=== PATIENT | female | born 1935 | race Caucasian/White ===

== ENCOUNTER 2017-11-22 10:40 | Outpatient (RCR) | payer MEDICARE, SELFPAY ==
[2017-11-08 08:21] LABS: Prothrombin Time Fingerstick 39.7 SEC (11.9-14.4)
[2017-11-22 12:28] LABS: International Normalized Ratio 2.5; Prothrombin Time (Protime)PT. 25.9 SECONDS (11.7-14.9)
[2017-11-22 12:33] LABS: T4 Free Direct 1.14 ng/dL (0.76-1.46); Thyroid Stim Hormone (TSH) 5.98 uIU/mL (0.358-3.74)
[2017-11-22 12:37] LABS: AST(SGOT) 22 U/L (15-37); Alanine Aminotransfer ALT/SGPT 36 U/L (12-78); Albumin, Serum 3.7 g/dL (3.4-5.0); Alkaline Phosphatase 78 U/L (45-117); Bilirubin, Direct 0.11 mg/dL (0.00-0.30); Globulin 3.7 g/dL (2.2-4.2); Protein, Total 7.4 g/dL (6.4-8.2)
== END 2017-11-22 11:00 | disposition home or self-care (01) ==
LOC: MTLAB 10:40
PROVIDERS: Family Provider Family Medicine; PCP Family Medicine; Visit Provider Internal Medicine Cardiovascular Disease
DX: I48.2 Chronic atrial fibrillation (principal)
CPT/HCPCS: 36415; 36416; 80076; 84439; 84443; 85610

== ENCOUNTER 2017-12-05 08:01 | Outpatient (RCR) | payer MEDICARE, SELFPAY ==
[2017-10-29 09:52] VITALS: BP 128/72; BMI 41.1
[2017-12-05 08:16] LABS: Prothrombin Time Fingerstick 32.5 SEC (11.9-14.4)
== END 2017-12-05 15:00 | disposition home or self-care (01) ==
LOC: MTLAB 08:01
PROVIDERS: Family Provider Family Medicine; PCP Family Medicine; Visit Provider Internal Medicine Cardiovascular Disease
DX: I48.0 Paroxysmal atrial fibrillation (principal); Z79.01 Long term (current) use of anticoagulants
CPT/HCPCS: 36416; 85610

== ENCOUNTER → 2018-01-03 09:55 | Outpatient (CLI) | payer MEDICARE, SELFPAY ==
[2018-01-03 12:48] LABS: T4 Free Direct 1.09 ng/dL (0.76-1.46); Thyroid Stim Hormone (TSH) 4.19 uIU/mL (0.358-3.74)
== END ==
PROVIDERS: Family Provider Family Medicine; PCP Family Medicine
DX: I48.1 Persistent atrial fibrillation (principal)
CPT/HCPCS: 36415; 84439; 84443

== ENCOUNTER → 2018-01-16 10:15 | Outpatient (CLI) | payer MEDICARE, SELFPAY ==
--- NOTE | 2018-01-16 10:23 | RAD_ITS ---
STUDY: X-RAY CHEST REASON FOR EXAM: Female, 82 years old. COPD TECHNIQUE: Frontal and lateral view COMPARISON: June 19, 2017 FINDINGS: Stable left-sided pacemaker. The lungs are clear and expanded. There is no demonstrated pleural abnormality. Stable cardiomegaly. Normal mediastinum and tito. Slightly prominent central pulmonary arteries. Mildly calcified aortic arch and descending thoracic aorta. Mild degenerative changes of the thoracic spine. Normal visualized ribs, clavicles, and shoulders. There is no demonstrated abnormality of the visualized soft tissue structures of the upper abdomen. RAD/Chest PA and Lateral IMPRESSION: Cardiomegaly with central pulmonary vascular prominence. Electronically Signed: Jose David Davis DO at 21:01 EDT Tel [phone], Service support ,
== END ==
PROVIDERS: Family Provider Family Medicine; PCP Family Medicine; Visit Provider Family Medicine
DX: J44.1 Chronic obstructive pulmonary disease with (acute) exacerbation (principal); I51.7 Cardiomegaly
CPT/HCPCS: 71046

== ENCOUNTER → 2018-01-23 10:47 | Outpatient (CLI) | payer MEDICARE, SELFPAY ==
--- NOTE | 2018-01-23 10:58 | RAD_ITS ---
STUDY: X-RAY - ABDOMEN/PELVIS REASON FOR EXAM: Female, 82 years old. Constipation. TECHNIQUE: AP supine and upright views of the abdomen and pelvis. COMPARISON: None. FINDINGS: Normal visualized lung bases. Pacer leads overlie the heart. Air and feces is seen throughout the colon without colonic enlargement there is no small bowel dilatation. There is no demonstrated free abdominal air. The visualized liver, spleen and kidneys are grossly normal in size and morphology. Normal soft tissue structures. There are diffuse degenerative changes of the visualized lumbar spine. RAD/Abd Inc Decub and/or Erect IMPRESSION: Increased colonic feces consistent with constipation. Electronically Signed: Brett Smith DO at 16:56 EDT Tel [phone], Service support ,
== END ==
LOC: MTLAB 10:51 → MTRAD 10:54
PROVIDERS: Family Provider Family Medicine; PCP Family Medicine; Visit Provider Family Medicine
DX: K59.00 Constipation, unspecified (principal)
CPT/HCPCS: 74019

== ENCOUNTER 2018-01-24 09:32 | Outpatient (RCR) | payer MEDICARE, SELFPAY ==
[2017-12-27 12:21] LABS: Prothrombin Time Fingerstick 26.4 SEC (11.9-14.4)
[2018-01-24 12:05] LABS: International Normalized Ratio 2.4; Prothrombin Time (Protime)PT. 26.6 SECONDS (11.7-14.9)
[2018-01-24 12:34] LABS: Vitamin D,25 Hydroxy 24.9 ng/mL (29.95-100.01)
[2018-01-24 12:37] LABS: Anion Gap 8 (5-15); BUN 20 mg/dL (7-18); BUN/Creat Ratio 18.5 RATIO (10-20); Calcium,Total 8.5 mg/dL (8.5-10.1); Chloride 98 mmol/L (98-107); Creatinine, Serum 1.08 mg/dL (0.55-1.02); EST Glomerular Filtration Rate 52 mL/min (>60); Est Glom Filt Rate - Afr Amer 63 mL/min (>60); Glucose 124 mg/dL (74-106); Potassium 3.6 mmol/L (3.5-5.1); Sodium Level 137 mmol/L (136-145); Thyroid Stim Hormone (TSH) 1.13 uIU/mL (0.358-3.74)
== END 2018-01-24 10:00 | disposition home or self-care (01) ==
LOC: MTLAB 09:32
PROVIDERS: Family Provider Family Medicine; PCP Family Medicine; Visit Provider Internal Medicine Cardiovascular Disease
DX: E03.9 Hypothyroidism, unspecified (principal); I48.0 Paroxysmal atrial fibrillation; Z79.01 Long term (current) use of anticoagulants; E55.9 Vitamin D deficiency, unspecified
CPT/HCPCS: 36416; 80048; 82306; 84443; 85610

== ENCOUNTER → 2018-02-06 10:41 | Outpatient (CLI) | payer MEDICARE, SELFPAY ==
--- NOTE | 2018-02-06 10:46 | RAD_ITS ---
STUDY: X-RAY CHEST REASON FOR EXAM: Female, 82 years old. Mid anterior chest pain. TECHNIQUE: PA and lateral views of the chest. COMPARISON: Comparison is made with prior study dated January 16, 2018. FINDINGS: Hyperinflation. Stable mild degree of increased markings at the lung bases suggestive of bibasilar scarring. There is no demonstrated pleural abnormality. There is mild cardiac enlargement. Left-sided dual-chamber pacemaker is seen. Normal mediastinum and tito. Normal visualized pulmonary arteries. There is atherosclerotic calcification of the aortic arch with tortuosity. There are diffuse degenerative changes of the visualized thoracic spine. The mineralization of the thoracic vertebrae. Healed fracture of the proximal left humerus. There is no demonstrated abnormality of the visualized soft tissue structures of the upper abdomen. RAD/Chest PA and Lateral IMPRESSION: Hyperinflation. Stable mild degree of increased markings at the lung bases suggestive of scarring. Electronically Signed: Darvin Marroquin MD at 11:21 EDT Tel [phone], Service support ,
--- NOTE | 2018-02-06 10:46 | RAD_ITS ---
STUDY: X-RAY - ABDOMEN/PELVIS REASON FOR EXAM: Female, 82 years old. Constipation. TECHNIQUE: AP supine and upright views of the abdomen and pelvis. COMPARISON: None. FINDINGS: Normal visualized lung bases. There is an abundance of fecal material throughout the colon. There is no demonstrated free abdominal air. The visualized liver, spleen and kidneys are grossly normal in size and morphology. Normal soft tissue structures. There are diffuse degenerative changes of the visualized lumbar spine. Osteoarthritis of both hip joints. RAD/Abd Inc Decub and/or Erect IMPRESSION: Large amount of fecal material is seen in the colon. Electronically Signed: Darvin Marroquin MD at 11:23 EDT Tel [phone], Service support ,
[2018-02-06 12:13] LABS: Absolute Lymphocyte Count 1.02 X10^3/ul (0.83-4.51); Absolute Neutrophil Count 6.3 X10^3/uL (2.0-7.7); Basophil# 0.05 X10^3/uL; Basophil% 0.6 % (0-1); Eosinophil# 0.11 X10^3/uL; Eosinophils% 1.4 % (0-5); Lymphocyte # 1.02 X10^3/ul (4.0); Lymphocyte % 12.7 % (19-41); Mean Corp Hgb Conc 31.1 g/gl (32-36); Mean Corpuscular Hgb 30.3 pg (27.0-32.0); Mean Corpuscular Volume 97.4 fL (81-99); Monocyte# 0.59 X10^3/uL; Monocyte% 7.3 % (0-10); Neutrophil # 6.25 X10^3/uL (2.7-7.7); Neutrophil % 77.8 % (47-70); Platelet Count 200 K/mm3 (150-450); RBC Distribution Width CV 15.1 % (11.6-14.6); RBC Distribution Width SD 53.4 fl (35.1-43.9); Red Blood Count 4.62 M/mm3 (4.2-5.4)
[2018-02-06 12:18] LABS: POSITIVE COUNT NO; POSITIVE DIFFERENTIAL NO; POSITIVE MORPHOLOGY NO
[2018-02-06 12:30] LABS: International Normalized Ratio 2.5; Prothrombin Time (Protime)PT. 27.2 SECONDS (11.7-14.9)
[2018-02-06 12:44] LABS: Anion Gap 8 (5-15); BUN 16 mg/dL (7-18); BUN/Creat Ratio 15.5 RATIO (10-20); Calcium,Total 8.7 mg/dL (8.5-10.1); Chloride 99 mmol/L (98-107); Creatinine, Serum 1.03 mg/dL (0.55-1.02); EST Glomerular Filtration Rate 55 mL/min (>60); Est Glom Filt Rate - Afr Amer 66 mL/min (>60); Glucose 129 mg/dL (74-106); Potassium 3.7 mmol/L (3.5-5.1); Sodium Level 141 mmol/L (136-145)
== END ==
PROVIDERS: Internal Medicine Cardiovascular Disease; Family Provider Family Medicine; PCP Family Medicine; Visit Provider Nurse Practitioner Adult Health
DX: I48.0 Paroxysmal atrial fibrillation (principal); Z79.01 Long term (current) use of anticoagulants; K59.00 Constipation, unspecified; R53.83 Other fatigue; R05 Cough
CPT/HCPCS: 36415; 71046; 74019; 80048; 85025; 85610

== ENCOUNTER 2018-02-07 07:35 | Emergency (ER) | payer MEDICARE, SELFPAY ==
[2018-02-07 07:36] VITALS: BP 157/100; PULSE 77; RESP 20; TEMP 36.6; O2SAT 92; BMI 41.1
--- NOTE | 2018-02-07 07:59 | RAD_ITS ---
STUDY: X-RAY CHEST REASON FOR EXAM: Female, 82 years old. Epigastric pain. Diarrhea. TECHNIQUE: Single AP portable view of the chest. COMPARISON: Comparison is made with prior study dated February 06, 2018. FINDINGS: EKG electrodes are seen. Stable mild degree of increased markings at the lung bases suggestive of scarring. There is no demonstrated pleural abnormality. There is borderline cardiomegaly. A left-sided dual-chamber pacemaker is seen. Normal mediastinum and tito. Normal visualized pulmonary arteries. There is atherosclerotic tortuosity of the aortic arch and descending thoracic aorta. There are diffuse degenerative changes of the visualized thoracic spine. Deformity of the proximal left humerus due to a healed fracture of the humeral neck. There is no demonstrated abnormality of the visualized soft tissue structures of the upper abdomen. RAD/Chest 1 View (Portable) IMPRESSION: Stable examination with findings suggestive of bibasilar scarring. Electronically Signed: Darvin Marroquin MD at 8:27 EDT Tel [phone], Service support ,
--- NOTE | 2018-02-07 07:59 | EKG12_ITS ---
Test Reason : CONSTIPATON Blood Pressure : / mmHG Vent. Rate : 071 BPM Atrial Rate : 115 BPM P-R Int : 000 ms QRS Dur : 092 ms QT Int : 352 ms P-R-T Axes : 000 005 -69 degrees QTc Int : 382 ms Atrial fibrillation with occasional ventricular-paced complexes Nonspecific ST and T wave abnormality Abnormal ECG Confirmed by SUSHIL RENEE, CHRISTIAN ([id number]), story editor KRISTIN PONCE ([id number]) on 02/11/2018 1:50:34 PM Referred By: Olesya Kurtz Confirmed By:CHRISTIAN LING MD
--- NOTE | 2018-02-07 08:08 | ED.VISSUMM ---
- ER Visit Summary Date of Service: 02/07/18 Chief Complaint: Constipation History of Present Illness: The patient is a 82 F with constipation. Symptoms started about 2 weeks ago. She is passing gas and liquid stools. Her PCP ordered x-rays. This showed constipation without sign of obstruction. She has tried stool softeners and mag citrate with no relief. She has also tried prunes. No other occasions. She had this years ago, but is not sure what caused it. She has a cardiac history and history of hypokalemia. She denies vomiting. Denies urinary symptoms. Denies fevers. She does have diffuse abdominal pain and says she feels like she has to have a bowel movement. She said that sometimes the pain radiates into her epigastric and chest region. It does not feel like prior angina or cardiac symptoms for her. It was also noted that she has a history of atrial fibrillation and she is on Coumadin. Physical Examination: Blood pressure 157/100. Otherwise vitals unremarkable. Afebrile. Alert and oriented. No acute distress. Appears uncomfortable. Heart regular. Lungs clear. Abdomen is mildly distended and diffusely tender. No guarding or rebound. Chaperoned rectal exam shows no stool in the rectum. No bleeding or masses noted. Test Results: EKG, chest x-ray, labs, urinalysis pending. Emergency Department Course and Treatment: 1. She is complaining of chest pain. I have low suspicion for ACS, PE, or dissection. Her symptoms are likely secondary to constipation. She had an x-ray yesterday that showed constipation without obstruction. I will check an EKG, chest x-ray, and troponin, but I do not believe that she will need a further cardiac workup if these are normal. I will focus on other metabolic, infectious, and medication related causes. Blood work pending. Urinalysis pending. Will try an enema. Workup was all fairly unremarkable. EKG showed A. fib at a rate of 71. Chest x-ray was stable with bibasilar scarring. CT abdomen showed fluid in the colon. She has bilateral renal cysts, stable hepatic lesion, diverticulosis, bladder diverticulum, coronary disease, bilateral adrenal nodules, biliary sludge, and a right middle lobe patchy infiltrate. CBC unremarkable. BMP unremarkable. INR therapeutic. Urinalysis unremarkable. Troponin normal. Patient had no relief after her first enema. We tried a second 1 and she had no relief. We were initially going to admit the patient, but she declined and wants to go home. I will prescribe MiraLAX. I spoke with her PCPs on-call partner, and we will have her follow-up. She may return at any time if she is worse. I discussed the right middle lobe infiltrate. She has no white count, fever, sputum, or any other symptoms to adjust pneumonia. Given the risks of treatment, we will not treat at this time. They will follow-up closely in the office. Treatment Plan: As above Disposition: Discharged Impression: 1. Constipation This note was generated with [employer] dictation software. It may contain incorrect words, spelling, and punctuation that were not noted in review of the chart prior to signing ED Disposition - Plan for ED Patient: Chief Complaint: Constipation Referrals: Raheem Cline MD [Primary Care Provider] -
--- NOTE | 2018-02-07 08:12 | ED.DCSUM_ITS ---
- ER Visit Summary Date of Service: 02/07/18 Chief Complaint: Constipation History of Present Illness: The patient is a 82 F with constipation. Symptoms started about 2 weeks ago. She is passing gas and liquid stools. Her PCP ordered x-rays. This showed constipation without sign of obstruction. She has tried stool softeners and mag citrate with no relief. She has also tried prunes. No other occasions. She had this years ago, but is not sure what caused it. She has a cardiac history and history of hypokalemia. She denies vomiting. Denies urinary symptoms. Denies fevers. She does have diffuse abdominal pain and says she feels like she has to have a bowel movement. She said that sometimes the pain radiates into her epigastric and chest region. It does not feel like prior angina or cardiac symptoms for her. It was also noted that she has a history of atrial fibrillation and she is on Coumadin. Physical Examination: Blood pressure 157/100. Otherwise vitals unremarkable. Afebrile. Alert and oriented. No acute distress. Appears uncomfortable. Heart regular. Lungs clear. Abdomen is mildly distended and diffusely tender. No guarding or rebound. Chaperoned rectal exam shows no stool in the rectum. No bleeding or masses noted. Test Results: EKG, chest x-ray, labs, urinalysis pending. Emergency Department Course and Treatment: 1. She is complaining of chest pain. I have low suspicion for ACS, PE, or dissection. Her symptoms are likely secondary to constipation. She had an x-ray yesterday that showed constipation without obstruction. I will check an EKG, chest x-ray, and troponin, but I do not believe that she will need a further cardiac workup if these are normal. I will focus on other metabolic, infectious, and medication related causes. Blood work pending. Urinalysis pending. Will try an enema. Workup was all fairly unremarkable. EKG showed A. fib at a rate of 71. Chest x -ray was stable with bibasilar scarring. CT abdomen showed fluid in the colon. She has bilateral renal cysts, stable hepatic lesion, diverticulosis, bladder diverticulum, coronary disease, bilateral adrenal nodules, biliary sludge, and a right middle lobe patchy infiltrate. CBC unremarkable. BMP unremarkable. INR therapeutic. Urinalysis unremarkable. Troponin normal. Patient had no relief after her first enema. We tried a second 1 and she had no relief. We were initially going to admit the patient, but she declined and wants to go home. I will prescribe MiraLAX. I spoke with her PCPs on-call partner, and we will have her follow-up. She may return at any time if she is worse. I discussed the right middle lobe infiltrate. She has no white count, fever, sputum, or any other symptoms to adjust pneumonia. Given the risks of treatment , we will not treat at this time. They will follow-up closely in the office. Treatment Plan: As above Disposition: Discharged Impression: 1. Constipation This note was generated with [employer] dictation software. It may contain incorrect words, spelling, and punctuation that were not noted in review of the chart prior to signing ED Disposition - Plan for ED Patient: Chief Complaint: Constipation Referrals: Raheem Cline MD [Primary Care Provider] -
[2018-02-07 08:36] LABS: Absolute Lymphocyte Count 0.77 X10^3/ul (0.83-4.51); Absolute Neutrophil Count 5.4 X10^3/uL (2.0-7.7); Basophil# 0.04 X10^3/uL; Basophil% 0.6 % (0-1); Eosinophils% 1.4 % (0-5); Hematocrit 45.5 % (37-47); Hemoglobin 14.3 g/dl (12.0-15.0); Lymphocyte # 0.77 X10^3/ul (4.0); Lymphocyte % 11.1 % (19-41); Mean Corp Hgb Conc 31.4 g/gl (32-36); Mean Corpuscular Hgb 30.3 pg (27.0-32.0); Mean Corpuscular Volume 96.4 fL (81-99); Mean Platelet Vol. 11.1 fl (6.2-12.0); Monocyte# 0.55 X10^3/uL; Monocyte% 7.9 % (0-10); Neutrophil # 5.42 X10^3/uL (2.7-7.7); Neutrophil % 78.4 % (47-70); POSITIVE COUNT NO; POSITIVE DIFFERENTIAL NO; POSITIVE MORPHOLOGY NO; Platelet Count 181 K/mm3 (150-450); RBC Distribution Width CV 15.1 % (11.6-14.6); RBC Distribution Width SD 52.1 fl (35.1-43.9); Red Blood Count 4.72 M/mm3 (4.2-5.4); White Blood Count 6.9 K/mm3 (4.4-11.0)
[2018-02-07 08:44] LABS: International Normalized Ratio 2.2; Prothrombin Time (Protime)PT. 24.8 SECONDS (11.7-14.9)
[2018-02-07 09:16] LABS: Mucous, Urine 0 SEEN /hpf (<or=2+); Red Blood Cells-Urine 0 SEEN /hpf (0-5)
[2018-02-07 09:20] LABS: Color, Urine Yellow (Yellow); Glucose, Dipstick Normal (Normal); Ketone-Dipstick Negative (Negative); Leukocyte Esterase-Dipstick 25 /ul (Negative); Nitrite-Dipstick Negative (Negative); Occult Blood-Urine Negative /ul (Negative); Protein-Dipstick Negative (Negative); Urine Bilirubin Dipstick Negative (Negative); Urine Clarity Sl. Cloudy (Clear); Urine Urobilinogen Normal (Normal)
[2018-02-07 09:23] LABS: Anion Gap 6 (5-15); BUN 15 mg/dL (7-18); BUN/Creat Ratio 14.9 RATIO (10-20); Calcium,Total 8.8 mg/dL (8.5-10.1); Chloride 99 mmol/L (98-107); Creatinine, Serum 1.01 mg/dL (0.55-1.02); EST Glomerular Filtration Rate 56 mL/min (>60); Est Glom Filt Rate - Afr Amer 68 mL/min (>60); Estimated Creatinine Clearance 34.55 ml/min; Glucose 133 mg/dL (74-106); Potassium 3.5 mmol/L (3.5-5.1); Sodium Level 140 mmol/L (136-145)
[2018-02-07 09:31] LABS: Bacteria 1+ /hpf (None Seen); Squamous Epithelial Cells - UA 0-5 SEEN /hpf (5-10); White Blood Cells 0-5 SEEN /hpf (0-5)
[2018-02-07 09:36] VITALS: BP 116/61; PULSE 65; RESP 18; O2SAT 95
--- NOTE | 2018-02-07 09:57 | CT_ITS ---
STUDY: CT ABDOMEN AND PELVIS WITH CONTRAST REASON FOR EXAM: Female, 82 years old. Abdominal pain with constipation. RADIATION DOSAGE (If Supplied By Facility): CTDIvol = ( 17.07 ) mGy, DLP = ( 1170.75 ) mGycm TECHNIQUE: Transaxial images were obtained from the dome of the diaphragm to the symphysis pubis without oral contrast. 100 ml of Isovue 300 contrast was administered. Sagittal and coronal images were reconstructed. Individualized dose optimization techniques were used for this CT. COMPARISON: CT of the abdomen and pelvis dated September 30, 2016. FINDINGS: Curvilinear opacities are visible within the bilateral lower lobes probably secondary to pulmonary fibrosis. There is patchy right middle lobe airspace consolidation possibly representing pneumonia. This is new since the previous CT. No pleural effusions are visualized. Visualized heart is enlarged. Patient has an intracardiac pacemaker. There are coronary artery vascular calcifications. There are multiple low-attenuation lesions with along the left lobe liver. The largest lesion measures approximately 1.8 cm in greatest dimension. There are scattered parenchymal calcifications of the liver that may represent granulomas. Appears to be a fluid/fluid level within the gallbladder. This suggests the possibility of biliary sludge. There are multiple benign calcified granulomata of the spleen. Normal pancreas. There are bilateral adrenal nodules. The right adrenal nodule measures measures approximately 1.9 cm. The left adrenal nodule measures 2.1 cm in size. There are bilateral renal cysts. The largest arises from the posterior cortex of the right kidney and measures approximately 2.5 cm. There is no evidence for hydronephrosis, hydroureter or radiopaque ureteral calculi. There is a small hiatal hernia. There is no evidence for dilated bowel, ascites or pneumoperitoneum. Small bowel has a grossly normal appearance. There is fluid present throughout the colon suggesting possible diarrhea. There are scattered colonic diverticula. There are numerous sigmoid colon diverticula. There is non-visualization of the appendix. There is patchy atherosclerotic calcification of the abdominal aorta with elongation and tortuosity, but without a demonstrated aneurysm. Normal inferior vena cava. Normal retroperitoneum. Appears to be a large urinary bladder diverticulum arising from the posterior urinary bladder wall. This is unchanged since the previous CT. There is a small umbilical hernia containing fat. There is multilevel thoracic spondylosis. The bones appear osteopenic. There appear to be compression fractures of the superior endplates of L3 and inferior endplate of L5. These appear to be large Schmorl's nodes CT/Abdomen/Pelvis W IV Cont ONLY IMPRESSION: 1. Large amount of fluid throughout the colon suggesting diarrhea rather than constipation. 2. Moderately severe sigmoid colon diverticulosis. 3. Large urinary bladder diverticulum. 4. Bilateral renal cysts. 5. Unchanged appearance to hepatic cystic lesions since previous CT. 6. Patchy right middle lobe airspace disease could represent pneumonia. 7. Sequela of coronary artery vascular disease. 8. Bilateral adrenal nodules. 9. Biliary sludge. Electronically Signed: Aydee Rudd MD at 10:50 EDT , Service support ,
--- NOTE | 2018-02-07 10:00 | ED.RN ---
pt refused straight cath at this time. she wants to attempt a clean catch
[2018-02-07 14:41] VITALS: BP 114/54; PULSE 71; RESP 20; O2SAT 98
--- NOTE | 2018-02-07 15:04 | ED.DEP ---
ED Disposition - Plan for ED Patient: Chief Complaint: Constipation Instructions: ED Constipation Prescriptions: Polyethylene Glycol 3350 [Miralax] 17 gm PO DAILY #30 packet Referrals: Raheem Cline MD [Primary Care Provider] -
[2018-02-07 15:34] VITALS: BP 140/78; PULSE 84; RESP 18; O2SAT 97
== END 2018-02-07 15:36 | disposition home or self-care (01) ==
PROVIDERS: Emergency Provider Emergency Medicine; Family Provider Family Medicine; PCP Family Medicine
DX: K59.00 Constipation, unspecified (principal); I48.91 Unspecified atrial fibrillation; R07.9 Chest pain, unspecified; I10 Essential (primary) hypertension; E78.00 Pure hypercholesterolemia, unspecified; J44.9 Chronic obstructive pulmonary disease, unspecified; I27.20 Pulmonary hypertension, unspecified; K21.9 Gastro-esophageal reflux disease without esophagitis; E03.9 Hypothyroidism, unspecified; E87.6 Hypokalemia; Z79.01 Long term (current) use of anticoagulants; Z79.899 Other long term (current) drug therapy; Z99.81 Dependence on supplemental oxygen; Z87.891 Personal history of nicotine dependence
CPT/HCPCS: 36415; 71045; 74177; 80048; 81001; 84484; 85025; 85610; 93005; 99285; Q9967; A4216

== ENCOUNTER 2018-02-08 11:36 | Emergency (ER) | payer MEDICARE, SELFPAY ==
[2018-02-08 11:40] VITALS: BP 125/62; PULSE 84; RESP 16; TEMP 37.2; O2SAT 92; BMI 41.1
--- NOTE | 2018-02-08 12:07 | EKG12_ITS ---
Test Reason : CP Blood Pressure : / mmHG Vent. Rate : 092 BPM Atrial Rate : 082 BPM P-R Int : 000 ms QRS Dur : 086 ms QT Int : 420 ms P-R-T Axes : 000 014 -80 degrees QTc Int : 519 ms Atrial fibrillation Nonspecific ST abnormality Prolonged QT Abnormal ECG Confirmed by SUSHIL RENEE, CHRISTIAN ([id number]), news copy editor KRISTIN PONCE ([id number]) on 02/11/2018 2:27:35 PM Referred By: Olesya Kurtz Confirmed By:CHRISTIAN LING MD
--- NOTE | 2018-02-08 12:08 | US_ITS ---
STUDY: ABDOMINAL ULTRASOUND - RIGHT UPPER QUADRANT REASON FOR VISIT: Female, 82 years old. Right upper quadrant pain. TECHNIQUE: Ultrasound evaluation of the right upper quadrant was performed with real-time and static hood-scale imaging. TECHNICAL QUALITY: Limited. Examination limited due to a combination of factors including obesity and bowel gas. COMPARISON: None. FINDINGS: Liver: The liver measures 16.7 cm. There is increased echogenicity consistent with fatty infiltration. The bile ducts are within normal limits. There is hepatic color flow. The direction of portal flow is hepatopetal. The lesion seen on the CT scan of the abdomen are not seen on this examination due to patient body habitus. Gallbladder: Normal distended gallbladder. The gallbladder wall measures 1.8 mm. There is a negative sonographic Espino's sign. There is no pericholecystic fluid. There are no gallstones. Common Bile Duct (C.B.D.): The common bile duct measures 4.8 mm. Pancreas: The pancreas is mostly obscured by bowel gas and not well-visualized. Right Kidney: Normal size of the right kidney. The right kidney measures 11.4 x 5.8 x 5.1 cm. Normal renal cortex. The right cortex measures 1.2 cm. There is no demonstrated renal mass or cyst. There is no right hydronephrosis. US/Gallbladder IMPRESSION: Limited examination due to patient's body habitus. No evidence of gallstones. Fatty infiltration of the liver. Electronically Signed: Vito Greenfield MD at 14:05 EDT Tel , Service support ,
[2018-02-08] MEDS: Ondansetron 4 MG/2 ML Vial IV (12:17)
[2018-02-08] MEDS: Morphine 4 MG/ML Syringe IV (12:18)
[2018-02-08 12:34] LABS: Absolute Neutrophil Count 8.1 X10^3/uL (2.0-7.7); Basophil# 0.02 X10^3/uL; Basophil% 0.2 % (0-1); Eosinophil# 0.06 X10^3/uL; Eosinophils% 0.6 % (0-5); Hematocrit 43.7 % (37-47); Hemoglobin 13.6 g/dl (12.0-15.0); Lymphocyte % 8.2 % (19-41); Mean Corp Hgb Conc 31.1 g/gl (32-36); Mean Corpuscular Hgb 30.1 pg (27.0-32.0); Mean Corpuscular Volume 96.7 fL (81-99); Mean Platelet Vol. 10.5 fl (6.2-12.0); Monocyte# 0.83 X10^3/uL; Monocyte% 8.5 % (0-10); Neutrophil # 8.07 X10^3/uL (2.7-7.7); Neutrophil % 82.4 % (47-70); Platelet Count 205 K/mm3 (150-450); RBC Distribution Width CV 15.1 % (11.6-14.6); RBC Distribution Width SD 53.2 fl (35.1-43.9); Red Blood Count 4.52 M/mm3 (4.2-5.4); White Blood Count 9.8 K/mm3 (4.4-11.0)
[2018-02-08 12:38] LABS: POSITIVE COUNT NO; POSITIVE DIFFERENTIAL NO; POSITIVE MORPHOLOGY NO
--- NOTE | 2018-02-08 12:44 | RAD_ITS ---
STUDY: X-RAY CHEST REASON FOR EXAM: Female, 82 years old. Dyspnea. TECHNIQUE: PA and lateral views of the chest. COMPARISON: 02/06/2018. FINDINGS: There again is a dual-chamber left pacemaker in place. No focal infiltrate is seen. There is no demonstrated pleural abnormality. There is mild cardiac enlargement. Normal mediastinum and tito. There is prominence of the pulmonary vasculature. There is atherosclerotic calcification of the aortic arch with tortuosity. There are diffuse degenerative changes of the visualized thoracic spine. There is degenerative osteoarthritis of the bilateral shoulders. There is an old fracture of the proximal left humerus. There is no demonstrated abnormality of the visualized soft tissue structures of the upper abdomen. RAD/Chest PA and Lateral IMPRESSION: Mild cardiomegaly and mild pulmonary venous congestion. Electronically Signed: Vito Greenfield MD at 13:21 EDT Tel , Service support ,
[2018-02-08 12:59] LABS: Lactic Acid 1.8 mmol/L (0.4-2.0)
[2018-02-08 13:02] LABS: ALB/GLOB Ratio 0.9 RATIO (0.9-2.4); AST(SGOT) 17 U/L (15-37); Alanine Aminotransfer ALT/SGPT 22 U/L (13-56); Albumin, Serum 3.5 g/dL (3.2-5.0); Alkaline Phosphatase 93 U/L (45-117); Anion Gap 7 (5-15); BUN 13 mg/dL (7-18); BUN/Creat Ratio 11.8 RATIO (10-20); Calcium,Total 8.6 mg/dL (8.5-10.1); Chloride 93 mmol/L (98-107); EST Glomerular Filtration Rate 51 mL/min (>60); Est Glom Filt Rate - Afr Amer 61 mL/min (>60); Estimated Creatinine Clearance 31.72 ml/min; Globulin 4.1 g/dL (2.2-4.2); Glucose 124 mg/dL (74-106); Lipase 97 U/L (73-393); Potassium 3.6 mmol/L (3.5-5.1); Protein, Total 7.6 g/dL (6.4-8.2); Sodium Level 135 mmol/L (136-145)
--- NOTE | 2018-02-08 14:50 | ED.VISSUMM ---
- ER Visit Summary Date of Service: 02/08/18 Chief Complaint: Abdominal pain History of Present Illness: The patient is a 82 F who presents with abdominal pain. It is been present for about 3 days. She complains of epigastric abdominal pain which radiates around to the back. This was initially attributed to constipation. She was seen in the ER yesterday. At that time she had a CT of the abdomen and pelvis which showed liquid stool throughout the colon. They did still attempt an enema. She can planes of worsening pain today. She reports nausea. She states that she feels short of breath but this is because it hurts in her abdomen when she breathes. She denies any fever or chest pain. No vomiting. Physical Examination: Afebrile vitals are unremarkable Heart regular rate and rhythm Lungs are clear Abdomen soft she has epigastric tenderness but she does not have guarding or rebound she does not have a Espino sign Alert Test Results: EKG shows A. fib at rate of 92. Laboratory studies notable for creatinine 1.10. Hepatic function and lipase are normal. Lactic acid is normal. Troponin is normal. Chest x-ray shows cardiomegaly and mild pulmonary venous congestion. Gallbladder ultrasound is unremarkable there is fatty liver but no gallstones or evidence of acute cholecystitis. Emergency Department Course and Treatment: Patient was treated with morphine and Zofran here. She is resting comfortably on reevaluation. Her repeat abdominal exam she is nontender and nondistended. Patient and family are concerned this could be related to gallbladder pathology. I explained that despite negative ultrasound she may still require further workup including HIDA scan. She will be referred to general surgery. She was given a prescription for tramadol. She has trace edema peripheral edema but no evidence of overt heart failure. She is not hypoxic or dyspneic. 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 Treatment Plan: [] Disposition: Discharge Impression: Epigastric abdominal pain This note was generated with [employer] dictation software. It may contain incorrect words, spelling, and punctuation that were not noted in review of the chart prior to signing ED Disposition - Plan for ED Patient: Chief Complaint: Constipation Referrals: Raheem Cline MD [Primary Care Provider] -
--- NOTE | 2018-02-08 14:54 | ED.DCSUM_ITS ---
- ER Visit Summary Date of Service: 02/08/18 Chief Complaint: Abdominal pain History of Present Illness: The patient is a 82 F who presents with abdominal pain. It is been present for about 3 days. She complains of epigastric abdominal pain which radiates around to the back. This was initially attributed to constipation. She was seen in the ER yesterday. At that time she had a CT of the abdomen and pelvis which showed liquid stool throughout the colon. They did still attempt an enema. She can planes of worsening pain today. She reports nausea. She states that she feels short of breath but this is because it hurts in her abdomen when she breathes. She denies any fever or chest pain. No vomiting. Physical Examination: Afebrile vitals are unremarkable Heart regular rate and rhythm Lungs are clear Abdomen soft she has epigastric tenderness but she does not have guarding or rebound she does not have a Espino sign Alert Test Results: EKG shows A. fib at rate of 92. Laboratory studies notable for creatinine 1.10. Hepatic function and lipase are normal. Lactic acid is normal. Troponin is normal. Chest x-ray shows cardiomegaly and mild pulmonary venous congestion. Gallbladder ultrasound is unremarkable there is fatty liver but no gallstones or evidence of acute cholecystitis. Emergency Department Course and Treatment: Patient was treated with morphine and Zofran here. She is resting comfortably on reevaluation. Her repeat abdominal exam she is nontender and nondistended. Patient and family are concerned this could be related to gallbladder pathology. I explained that despite negative ultrasound she may still require further workup including HIDA scan. She will be referred to general surgery. She was given a prescription for tramadol. She has trace edema peripheral edema but no evidence of overt heart failure. She is not hypoxic or dyspneic. 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 Treatment Plan: [] Disposition: Discharge Impression: Epigastric abdominal pain This note was generated with [employer] dictation software. It may contain incorrect words, spelling, and punctuation that were not noted in review of the chart prior to signing ED Disposition - Plan for ED Patient: Chief Complaint: Constipation Referrals: Raheem Cline MD [Primary Care Provider] -
--- NOTE | 2018-02-08 14:56 | ED.DEP ---
ED Disposition - Plan for ED Patient: Chief Complaint: Constipation Instructions: ED Abdominal Pain Unkn Cause Prescriptions: traMADol [Ultram] 50 mg PO Q6H PRN #12 tab PRN Reason: Pain Referrals: Raheem Cline MD [Primary Care Provider] - Marion Roy MD [STAFF PHYSICIAN] -
[2018-02-08 15:09] VITALS: BP 96/51; RESP 84; TEMP -7.7; TEMP 18
== END 2018-02-08 15:10 | disposition home or self-care (01) ==
PROVIDERS: Emergency Provider Emergency Medicine; Family Provider Family Medicine; PCP Family Medicine
DX: R10.13 Epigastric pain (principal); I48.91 Unspecified atrial fibrillation; I10 Essential (primary) hypertension; E78.00 Pure hypercholesterolemia, unspecified; E03.9 Hypothyroidism, unspecified; K21.9 Gastro-esophageal reflux disease without esophagitis; E66.9 Obesity, unspecified; E11.9 Type 2 diabetes mellitus without complications; Z95.0 Presence of cardiac pacemaker; Z68.41 Body mass index [BMI] 40.0-44.9, adult; Z79.01 Long term (current) use of anticoagulants; Z79.84 Long term (current) use of oral hypoglycemic drugs; Z79.899 Other long term (current) drug therapy
CPT/HCPCS: 71046; 76705; 80053; 83605; 83690; 84484; 85025; 93005; 96374; 96375; 99283; A4216; J2405

== ENCOUNTER → 2018-02-10 17:11 | Outpatient (CLI) | payer MEDICARE, SELFPAY ==
--- NOTE | 2018-02-10 17:15 | RAD_ITS ---
STUDY: X-RAY - THORACIC SPINE REASON FOR EXAM: Female, 82 years old. Pain TECHNIQUE: 4 view(s) of the thoracic spine were obtained. COMPARISON: Chest x-ray PA and lateral 02/08/2018. 01/01/2016. 01/16/2018. 02/06/2018. CT abdomen pelvis 09/30/2016. FINDINGS: Normal kyphosis of the thoracic spine. There is no substantial scoliosis. There is demineralization of the thoracic spine with endplate spondylosis. There is multilevel disc space narrowing of the thoracic spine. There is interval loss of vertebral body height predominantly along the superior endplate at T6 vertebral body new since 01/16/2018 and 02/06/2018. Mild depression superior endplate L3 vertebral body stable since 2015 CT abdomen 09/2016. The soft tissue structures are unremarkable. There is a left subclavian approach dual lead pacer with lead tips in the right atrium and right ventricle, arteriosclerosis, cardiac enlargement. RAD/Thoracic Spine 3 Views IMPRESSION: New loss of vertebral body height along the superior endplate T6 vertebral body of less than 50% since 02/06/2018. Osteoporosis and degenerative changes. Stable loss superior endplate L3 vertebral body. Electronically Signed: Zabrina Melton MD at 4:33 EDT , Service support ,
== END ==
PROVIDERS: Family Provider Family Medicine; PCP Family Medicine; Visit Provider Family Medicine
DX: M47.894 Other spondylosis, thoracic region (principal); M48.04 Spinal stenosis, thoracic region; M81.0 Age-related osteoporosis without current pathological fracture
CPT/HCPCS: 72072

== ENCOUNTER → 2018-02-19 10:50 | Outpatient (CLI) | payer MEDICARE, SELFPAY ==
--- NOTE | 2018-02-19 10:54 | RAD_ITS ---
STUDY: X-RAY - ABDOMEN/PELVIS REASON FOR EXAM: Female, 82 years old. Constipation, severe pain TECHNIQUE: AP supine and upright views of the abdomen and pelvis. COMPARISON: Previous study of 02/06/2018 FINDINGS: Normal visualized lung bases. There is a large amount of colonic stool. There is no demonstrated free abdominal air. The visualized liver, spleen and kidneys are grossly normal in size and morphology. Normal soft tissue structures. There are diffuse degenerative changes of the thoracolumbar spine. RAD/Abd Inc Decub and/or Erect IMPRESSION: Large amount of colonic stool consistent with constipation. There is no evidence of ileus or obstruction. Electronically Signed: Jeremy Norton MD at 19:07 EDT , Service support ,
[2018-02-19 11:56] LABS: Absolute Lymphocyte Count 1.41 X10^3/ul (0.83-4.51); Absolute Neutrophil Count 4.9 X10^3/uL (2.0-7.7); Basophil# 0.04 X10^3/uL; Basophil% 0.6 % (0-1); Eosinophil# 0.17 X10^3/uL; Eosinophils% 2.4 % (0-5); Hematocrit 46.8 % (37-47); Hemoglobin 14.2 g/dl (12.0-15.0); Lymphocyte # 1.41 X10^3/ul (4.0); Lymphocyte % 19.6 % (19-41); Mean Corp Hgb Conc 30.3 g/gl (32-36); Mean Corpuscular Hgb 29.8 pg (27.0-32.0); Mean Corpuscular Volume 98.1 fL (81-99); Mean Platelet Vol. 10.5 fl (6.2-12.0); Monocyte# 0.64 X10^3/uL; Monocyte% 8.9 % (0-10); Neutrophil # 4.94 X10^3/uL (2.7-7.7); Neutrophil % 68.4 % (47-70); Platelet Count 234 K/mm3 (150-450); RBC Distribution Width CV 14.5 % (11.6-14.6); RBC Distribution Width SD 52.1 fl (35.1-43.9); Red Blood Count 4.77 M/mm3 (4.2-5.4); White Blood Count 7.2 K/mm3 (4.4-11.0)
[2018-02-19 11:58] LABS: POSITIVE COUNT NO; POSITIVE DIFFERENTIAL NO; POSITIVE MORPHOLOGY NO
[2018-02-19 12:24] LABS: ALB/GLOB Ratio 0.9 RATIO (0.9-2.4); AST(SGOT) 31 U/L (15-37); Alanine Aminotransfer ALT/SGPT 33 U/L (13-56); Albumin, Serum 3.7 g/dL (3.2-5.0); Alkaline Phosphatase 87 U/L (45-117); Anion Gap 5 (5-15); BUN 20 mg/dL (7-18); BUN/Creat Ratio 17.7 RATIO (10-20); Calcium,Total 9.2 mg/dL (8.5-10.1); Chloride 94 mmol/L (98-107); Creatinine, Serum 1.13 mg/dL (0.55-1.02); EST Glomerular Filtration Rate 49 mL/min (>60); Est Glom Filt Rate - Afr Amer 59 mL/min (>60); Globulin 4.3 g/dL (2.2-4.2); Glucose 75 mg/dL (74-106); Magnesium 2.3 mg/dL (1.6-2.6); Potassium 3.9 mmol/L (3.5-5.1); Sodium Level 137 mmol/L (136-145); Thyroid Stim Hormone (TSH) 4.21 uIU/mL (0.358-3.74)
== END ==
PROVIDERS: Family Provider Family Medicine; PCP Family Medicine; Visit Provider Family Medicine
DX: K59.00 Constipation, unspecified (principal); I48.91 Unspecified atrial fibrillation; R60.0 Localized edema
CPT/HCPCS: 36415; 74019; 80053; 83735; 84443; 85025

== ENCOUNTER 2018-03-21 09:09 | Outpatient (RCR) | payer MEDICARE, SELFPAY ==
[2018-03-07 09:56] LABS: Prothrombin Time Fingerstick 18.6 SEC (11.9-14.4)
[2018-03-14 12:06] LABS: Prothrombin Time Fingerstick 24.7 SEC (11.9-14.4)
[2018-03-21 09:26] LABS: Prothrombin Time Fingerstick 39.1 SEC (11.9-14.4)
== END 2018-03-21 10:00 | disposition home or self-care (01) ==
LOC: MTLAB 09:09
PROVIDERS: Family Provider Family Medicine; PCP Family Medicine; Visit Provider Internal Medicine Cardiovascular Disease
DX: I48.0 Paroxysmal atrial fibrillation (principal); Z79.01 Long term (current) use of anticoagulants
CPT/HCPCS: 36416; 85610

== ENCOUNTER → 2018-03-31 10:57 | Outpatient (CLI) | payer MEDICARE, SELFPAY ==
--- NOTE | 2018-03-31 10:57 | DT_ITS ---
This patient was seen during an EMR downtime March 31, 2018 - April 07, 2018. This patient may have a combination of paper and electronic documentation or all paper documentation. All documentation is viewable within the e-chart portion of [employer] for each patient visit.
--- NOTE | 2018-03-31 11:05 | RAD_ITS ---
STUDY: X-RAY - LUMBAR SPINE REASON FOR EXAM: Female, 82 years old. Leg weakness. Pain. TECHNIQUE: 3 view(s) of the lumbar spine were obtained. COMPARISON: None FINDINGS: Normal lumbar lordosis. There is no substantial scoliosis. There is a normal alignment of the vertebrae. There is multilevel endplate spondylosis of the lumbar vertebrae. There is multi-level degenerative disc disease with multi-level disc space narrowing. Multilevel facet joint degenerative disease is seen. There is no demonstrated fracture. There is atherosclerotic calcification of the abdominal aorta without a demonstrated aneurysm. RAD/Lumbar Spine 2 or 3 Views IMPRESSION: No acute abnormality. Degenerative changes as above. Electronically Signed: Sánchez Menon MD at 19:51 EDT , Service support ,
== END ==
PROVIDERS: Family Provider Family Medicine; PCP Family Medicine; Visit Provider Family Medicine
DX: M62.81 Muscle weakness (generalized) (principal); M79.605 Pain in left leg
CPT/HCPCS: 72100

== ENCOUNTER 2018-04-03 16:50 | Emergency (ER) | payer MEDICARE, SELFPAY ==
--- NOTE | 2018-04-03 16:50 | DT_ITS ---
This patient was seen during an EMR downtime March 31, 2018 - April 07, 2018. This patient may have a combination of paper and electronic documentation or all paper documentation. All documentation is viewable within the e-chart portion of [employer] [facility] for each patient visit.
== END 2018-04-03 20:17 ==
LOC: ED 04-04 10:29
PROVIDERS: Emergency Provider Emergency Medicine; Family Provider Family Medicine; PCP Family Medicine
DX: M54.5 Low back pain (principal); I48.2 Chronic atrial fibrillation; I11.0 Hypertensive heart disease with heart failure; I50.9 Heart failure, unspecified; K21.9 Gastro-esophageal reflux disease without esophagitis; Z79.01 Long term (current) use of anticoagulants; Z79.899 Other long term (current) drug therapy; Z87.891 Personal history of nicotine dependence
CPT/HCPCS: 96372; 99282; J7030

== ENCOUNTER 2018-04-05 13:37 | Observation (INO) | payer MEDICARE, SELFPAY ==
--- NOTE | 2018-04-05 14:35 | RAD_ITS ---
STUDY: X-RAY - THORACIC SPINE REASON FOR EXAM: Female, 82 years old. Pain TECHNIQUE: 2 view(s) of the thoracic spine were obtained. COMPARISON: None. FINDINGS: There is an old compression fracture involving T6 vertebral body. No acute fractures or dislocations. The pedicles are intact.. RAD/Thoracic Spine 2 Views IMPRESSION: Old compression fracture involving T6 vertebral body. No acute fractures Electronically Signed: Genaro Zimmer, at 4:37 EDT Tel , Service support ,
--- NOTE | 2018-04-05 14:35 | RAD_ITS ---
STUDY: X-RAY CHEST REASON FOR EXAM: Female, 82 years old. Chest pain TECHNIQUE: 1 view COMPARISON: None. FINDINGS: There is cardiomegaly with a dual-chamber cardiac pacemaker in place. Mild central vascular congestion. A vague opacity in the left lower lobe. May represent early pneumonia or atelectatic change No pleural effusions. Normal visualized thoracic spine. Normal visualized ribs, clavicles, and shoulders. There is no demonstrated abnormality of the visualized soft tissue structures of the upper abdomen. RAD/Chest 1 View IMPRESSION: Cardiomegaly with mild central vascular congestion. A vague left lower lobe opacity which may represent an early pneumonia or plate atelectatic changes Electronically Signed: Genaro Zimmer, at 4:33 EDT Tel , Service support ,
--- NOTE | 2018-04-05 14:35 | RAD_ITS ---
STUDY: X-RAY - LUMBAR SPINE REASON FOR EXAM: Female, 82 years old. TECHNIQUE: view(s) of the lumbar spine were obtained. COMPARISON: None FINDINGS: There is a normal lordotic curvature of the lumbosacral spine with narrowing at L5-S1 and degenerative changes in the lower thoracic spine. No acute fractures.. RAD/Lumbar Spine 2 or 3 Views IMPRESSION: Degenerative changes of the lower thoracic spine and of L5-S1. No acute fractures Electronically Signed: Genaro Zimmer, at 4:47 EDT Tel , Service support ,
--- NOTE | 2018-04-05 15:30 | DT_ITS ---
This patient was seen during an EMR downtime March 31, 2018 - April 07, 2018. This patient may have a combination of paper and electronic documentation or all paper documentation. All documentation is viewable within the e-chart portion of [facility] for each patient visit.
[2018-04-08 09:39] LABS: Anion Gap 7 (5-15); BUN 71 mg/dL (7-18); BUN/Creat Ratio 28.3 RATIO (10-20); Calcium,Total 8.5 mg/dL (8.5-10.1); Chloride 92 mmol/L (98-107); Creatinine, Serum 2.51 mg/dL (0.55-1.02); EST Glomerular Filtration Rate 20 mL/min (>60); Est Glom Filt Rate - Afr Amer 24 mL/min (>60); Glucose 174 mg/dL (74-106); Potassium 4.9 mmol/L (3.5-5.1); Sodium Level 129 mmol/L (136-145)
[2018-04-08 20:57] LABS: International Normalized Ratio 3.3; Prothrombin Time (Protime)PT. 33.4 SECONDS (11.7-14.9)
[2018-04-08 21:09] LABS: Differential Indicated SCAN CRITERIA MET; Hematocrit 46.2 % (37-47); Hemoglobin 14.9 g/dl (12.0-15.0); Mean Corp Hgb Conc 32.3 g/gl (32-36); Mean Corpuscular Hgb 30.3 pg (27.0-32.0); Mean Corpuscular Volume 93.9 fL (81-99); Mean Platelet Vol. 10.7 fl (6.2-12.0); Neutrophil % 86.1 % (47-70); POSITIVE COUNT NO; POSITIVE DIFFERENTIAL YES; POSITIVE MORPHOLOGY NO; Platelet Count 187 K/mm3 (150-450); RBC Distribution Width CV 14.6 % (11.6-14.6); Red Blood Count 4.92 M/mm3 (4.2-5.4); White Blood Count 10.2 K/mm3 (4.4-11.0)
[2018-04-08 21:10] LABS: Absolute Lymphocyte Count 0.43 X10^3/ul (0.83-4.51); Absolute Neutrophil Count 8.8 X10^3/uL (2.0-7.7); Basophil# 0.01 X10^3/uL; Basophil% 0.1 % (0-1); Eosinophil# 0.01 X10^3/uL; Eosinophils% 0.1 % (0-5); Lymphocyte # 0.43 X10^3/ul (4.0); Lymphocyte % 4.2 % (19-41); Monocyte# 0.95 X10^3/uL; Monocyte% 9.3 % (0-10)
[2018-04-08 21:11] LABS: Differential Comment SCANNED
[2018-04-11 14:59] LABS: Bedside Glucose 106 mg/dL (70-110)
[2018-04-11 15:01] LABS: Bedside Glucose 120 mg/dL (70-110)
== END 2018-04-06 05:52 ==
LOC: ED 04-06 11:05 → MS3 04-06 11:06
PROVIDERS: Admitting Provider Internal Medicine; Emergency Provider Emergency Medicine; Family Provider Family Medicine; PCP Family Medicine; Visit Provider Internal Medicine
DX: I46.9 Cardiac arrest, cause unspecified (principal); E11.9 Type 2 diabetes mellitus without complications; M54.2 Cervicalgia; Z95.0 Presence of cardiac pacemaker; I11.0 Hypertensive heart disease with heart failure; I50.9 Heart failure, unspecified; E87.1 Hypo-osmolality and hyponatremia; N17.9 Acute kidney failure, unspecified; I48.0 Paroxysmal atrial fibrillation; K21.9 Gastro-esophageal reflux disease without esophagitis; E03.9 Hypothyroidism, unspecified; J44.9 Chronic obstructive pulmonary disease, unspecified; E66.01 Morbid (severe) obesity due to excess calories; Z71.3 Dietary counseling and surveillance; G47.30 Sleep apnea, unspecified
CPT/HCPCS: 36415; 71045; 72070; 72100; 80048; 82962; 85025; 85610; 96361; 96374; 96375; 96376; 99218; 99284; J7030; A4216; G0378; J2405